=== PATIENT | male | born 1970 | race Caucasian/White ===

== ENCOUNTER 2020-07-12 23:24 | Emergency (ER) | payer OTHER ==
[~2020-07-12] VITALS: Ht 180.3 cm; Wt 102.1 kg
--- NOTE | 2020-07-12 23:32 | NUR ---
VIKTORIA FROM HOME FOR C.O MID STERNAL CHEST "SORENESS" RADIATING TO HIS L SHOULDER X 1 HR. PT DESCRIBED THE PAIN ON AND OFF AND RATED "8/10 WHEN IT'S SHOOTING" . NO SOB. + LIGHTHEADEDNESS. PT ENDORSED HE TOOK TWO TABS OF CLONOPIN 0.5MG EACH NEONATAL DOCTOR W. NO EFFECT. PT WAS ASSISIED TO BED 3 ER AND WAS PLACED ON A MONITOR. VSS. WILL CONT TO MONITOR ,
[2020-07-12] MEDS ORDERED: OLANZAPINE 5 MG TABLET ONE (23:47)
[2020-07-13] MEDS ORDERED: OLANZAPINE 5 MG TABLET PO ONE
--- NOTE | 2020-07-13 01:05 | NUR ---
pt is medically stable for D/C. Patient discharged to home in stable condition. Written and verbal after care instructions given. Patient verbalizes understanding of instruction.
[2020-07-13 01:06] VITALS: BP 134/78
== END 2020-07-13 01:07 | disposition home or self-care (01) ==
LOC: ER 23:26
DX: F41.0 Panic disorder [episodic paroxysmal anxiety] (principal); J45.909 Unspecified asthma, uncomplicated
CPT/HCPCS: 71045-TC